=== PATIENT | female | born 1930 | race Caucasian/White ===

== ENCOUNTER 2019-03-16 03:43 | Inpatient (IN) ==
[2019-03-16] MEDS ORDERED: URO-JET MUCOUSMEMB STA (04:00)
--- NOTE | 2019-03-16 05:30 | CT ---
EXAM: CT chest without contrast. HISTORY: Cough and fever. PROCEDURE: Contiguous axial CT images of the chest without contrast with coronal and sagittal reform ats. FINDINGS: There is motion artifact which limits the exam. The heart is enlarged. The thoracic aorta is within normal limits in diameter. There are atherosclerotic calcifications in the thoracic aorta . There are coronary artery calcifications. There is circumferential wall thickening in the esophag us measuring up to 1.1 cm. There is a small hiatal hernia. There are secretions in the bilateral low er lobe bronchi. There are bilateral lower lobe infiltrates and minimal consolidation, consistent wi th pneumonia. There are degenerative changes in the spine. Impression: Bilateral lower lobe infiltrates and consolidation, consistent with pneumonia. Secretions in the bilateral lower lobe bronchi. Cardiomegaly. Atherosclerotic vascular disease. Circumferential wall thickening in the esophagus. The differential diagnosis includes esophagitis an d neoplasm.
--- NOTE | 2019-03-16 05:35 | CT ---
EXAM: CT of the abdomen and pelvis without contrast. HISTORY: Fever. Cough. Vomiting. PROCEDURE: Contiguous axial CT images of the abdomen and pelvis without contrast with coronal and sa gittal reformats. FINDINGS: The liver is normal in appearance. The gallbladder is at the upper limits of normal in siz e measuring 4 cm in diameter. The pancreas, spleen, adrenal glands and kidneys are normal in appeara nce. The abdominal aorta is within normal limits in diameter. There are atherosclerotic calcificati ons in the major arteries of the abdomen and pelvis. There is a small hiatal hernia. The appendix i s not visualized. There is diverticulosis of the colon with no evidence of diverticulitis. There is fecal impaction in the rectum which measures 6.8 x 6 cm on a single axial image. No free fluid or f ree air in the abdomen or pelvis. The bladder is minimally filled and normal in appearance. The [place] shila is surgically absent. There are multiple old healed pelvic fractures. There are degenerative an d operative changes in the spine. Impression: Fecal impaction in the rectum as described. Diverticulosis of the colon with no evidence of diverticulitis. Small hiatal hernia. Atherosclerotic vascular disease. Hysterectomy.
--- NOTE | 2019-03-16 06:06 | ED.PDOC ---
General ED Provider: Dr. KAVITA FITCH-ER Chief Complaint: Shortness of Air Stated Complaint: sent from mt for sob and temp 102 Time Seen by Physician: 03:45 Mode of Arrival: Ambulance Information Source: EMT Exam Limitations: Altered mental status Primary Care Provider: [facility] Nursing and Triage Documentation Reviewed and Agree: Yes Does patient meet sepsis criteria?: Yes If yes, has appropriate treatment been initiated?: Yes System Inflammatory Response Syndrome: Not Applicable Sepsis Protocol: For patient's 13 years and over: Temp is 96.8 and below OR 101 and greater Pulse >90 BPM Resp >20/minute Acutely Altered Mental Status Are patient's symptoms suggestive of a new infection, such as: -Pneumonia -Skin, Soft Tissue -Endocarditis -UTI -Bone, Joint Infection -Implantable Device -Acute Abdominal Infection -Wound Infection -Meningitis -Blood Stream Catheter Infection -Unknown Respiratory Complaint Exam - Respiratory Complaint/Exam Onset/Duration: 24 hrs Symptoms Are: Still present Initial Severity: Mild Current Severity: Moderate Location: Chest Character: Reports: Non-productive cough Aggravating: Reports: URI Alleviating: Reports: None Associated Signs and Symptoms: Reports: Rapid breathing, Dyspnea, Fever, Chills History of Healthcare-Acquired Pneumonia: Lives at half-way Home Oxygen Use: No Recent Stress Test: No Recent Echo/LV Function: No Respiratory Distress: Mild Inadequate Respiratory Effort: No Dysphagia Present: No Stridor Present: No JVD Present: No Accessory Muscle Use: No Diminished Breath Sounds: No Sinus Tenderness: None Grunting Respirations: No Kussmaul Respirations: No Differential Diagnoses: Pneumonia, Bronchitis Non-Traumatic Chest Pain Syncope: EKG Performed Review of Systems - Review Of Systems Constitutional: Reports: Chills, Fever, Weakness Eyes: Reports: No symptoms Ears, Nose, Mouth, Throat: Reports: No symptoms Respiratory: Reports: Cough, Short of air Cardiac: Reports: No symptoms GI: Reports: No symptoms : Reports: No symptoms Musculoskeletal: Reports: No symptoms Skin: Reports: No symptoms Neurological: Reports: No symptoms Endocrine: Reports: No symptoms Hematologic/Lymphatic: Reports: No symptoms All Other Systems: Reviewed and Negative Past Medical History - Past Medical History Previously Healthy: No Endocrine: Reports: Unknown Cardiovascular: Reports: Unknown Respiratory: Reports: Unknown Hematological: Reports: Unknown Gastrointestinal: Reports: Unknown Genitourinary: Reports: Unknown Neuro/Psych: Reports: Unknown Musculoskeletal: Reports: Unknown Cancer: Reports: Unknown Last Menstrual Period: UNKNOWN - Surgical History General Surgical History: Reports: Unknown - Family History Family History: Reports: Unknown - Social History Smoking Status: Unknown if ever smoked Hx Substance Use: (UNKNOWN) Alcohol Screening: None - Immunizations Tetanus Shot up to Date: (UNKNOWN) Physical Exam - Physical Exam Appearance: Well-appearing, No pain distress, Well-nourished Eyes: ALYSHA, EOMI, Conjunctiva clear ENT: Ears normal, Nose normal, Oropharynx normal Neck: Supple Respiratory: Crackles, Rhonchi Cardiovascular: RRR, Pulses normal, No rub, No murmur GI/: Soft, Nontender, No masses, Bowel sounds normal, No Organomegaly Musculoskeletal: Normal strength Skin: Warm Neurological: Sensation intact, Motor intact, Reflexes intact, Cranial nerves intact, Alert, Oriented Psychiatric: Affect appropriate, Mood appropriate Interpretation - Radiology Interpretation Radiology Interpretation By: Radiologist Radiology Results: Positive Exam Interpreted: CT Scan - EKG Interpretation Time of EKG #1: 06:06 Rate: Tachy Rhythm: Sinus Ectopy: None [place]: [place] ST Segment: Normal Critical Care Note - Critical Care Note Total Time (mins): 0 Course - Course Hematology/Chemistry: 03/16/19 04:30 03/16/19 04:30 Orders, Labs, Meds: Lab Review 03/16/19 03/16/19 03/16/19 03:58 04:30 04:30 WBC 9.79 RBC 4.38 Hgb 12.5 Hct 37.8 MCV 86.3 MCH 28.5 MCHC 33.1 RDW Coeff of Len 13.7 Plt Count 135 L Immature Gran % (Auto) 0.5 Neut % (Auto) 83.3 Lymph % (Auto) 10.4 Mellette % (Auto) 5.6 Eos % (Auto) 0.1 Baso % (Auto) 0.1 Immature Gran # (Auto) 0.1 Neut # (Auto) 8.2 H Lymph # (Auto) 1.0 Mellette # (Auto) 0.6 Eos # (Auto) 0.0 Baso # (Auto) 0.0 Puncture Site Lrad O2 Saturation 90.0 L ABG pH 7.398 ABG pCO2 40.9 ABG pO2 58.0 L* ABG HCO3 25.2 ABG Total CO2 26 ABG Base Excess 0 Jose Alberto Test + O2 Delivery Device Simple mask Oxygen Liter Flow 10.00 FiO2 % 60.0 Sodium 136.6 Potassium 3.28 L Chloride 99.7 Carbon Dioxide 26.9 Anion Gap 13.28 BUN 18.5 H Creatinine 0.63 Estimated GFR (MDRD) 89.00 BUN/Creatinine Ratio 29.36 Glucose 220.5 H Lactic Acid Calcium 8.79 Total Bilirubin 0.82 AST 18.6 ALT 14.1 Alkaline Phosphatase 77.7 Total Creatine Kinase Troponin I Total Protein 6.38 Albumin 3.85 Globulin 2.53 Albumin/Globulin Ratio 1.52 Amylase Lipase Procalcitonin Urine Color Urine Clarity Urine pH Ur Specific Axis Urine Protein Urine Glucose (UA) Urine Ketones Urine Blood Urine Nitrite Urine Bilirubin Urine Urobilinogen Ur Leukocyte Esterase Urine Microscopic RBC Urine Microscopic WBC Ur Squamous Epith Cells Urine Bacteria Urine Mucus 03/16/19 03/16/19 03/16/19 04:30 04:30 04:30 WBC RBC Hgb Hct MCV MCH MCHC RDW Coeff of Len Plt Count Immature Gran % (Auto) Neut % (Auto) Lymph % (Auto) Mellette % (Auto) Eos % (Auto) Baso % (Auto) Immature Gran # (Auto) Neut # (Auto) Lymph # (Auto) Mellette # (Auto) Eos # (Auto) Baso # (Auto) Puncture Site O2 Saturation ABG pH ABG pCO2 ABG pO2 ABG HCO3 ABG Total CO2 ABG Base Excess Jose Alberto Test O2 Delivery Device Oxygen Liter Flow FiO2 % Sodium Potassium Chloride Carbon Dioxide Anion Gap BUN Creatinine Estimated GFR (MDRD) BUN/Creatinine Ratio Glucose Lactic Acid 1.46 Calcium Total Bilirubin AST ALT Alkaline Phosphatase Total Creatine Kinase 41.5 Troponin I 0.014 Total Protein Albumin Globulin Albumin/Globulin Ratio Amylase 70.0 Lipase 34.0 Procalcitonin 0.06 Urine Color Urine Clarity Urine pH Ur Specific Axis Urine Protein Urine Glucose (UA) Urine Ketones Urine Blood Urine Nitrite Urine Bilirubin Urine Urobilinogen Ur Leukocyte Esterase Urine Microscopic RBC Urine Microscopic WBC Ur Squamous Epith Cells Urine Bacteria Urine Mucus 03/16/19 06:00 WBC RBC Hgb Hct MCV MCH MCHC RDW Coeff of Len Plt Count Immature Gran % (Auto) Neut % (Auto) Lymph % (Auto) Mellette % (Auto) Eos % (Auto) Baso % (Auto) Immature Gran # (Auto) Neut # (Auto) Lymph # (Auto) Mellette # (Auto) Eos # (Auto) Baso # (Auto) Puncture Site O2 Saturation ABG pH ABG pCO2 ABG pO2 ABG HCO3 ABG Total CO2 ABG Base Excess Jose Alberto Test O2 Delivery Device Oxygen Liter Flow FiO2 % Sodium Potassium Chloride Carbon Dioxide Anion Gap BUN Creatinine Estimated GFR (MDRD) BUN/Creatinine Ratio Glucose Lactic Acid Calcium Total Bilirubin AST ALT Alkaline Phosphatase Total Creatine Kinase Troponin I Total Protein Albumin Globulin Albumin/Globulin Ratio Amylase Lipase Procalcitonin Urine Color Yellow Urine Clarity Cloudy Urine pH 6.5 Ur Specific Axis 1.020 Urine Protein 1+ Urine Glucose (UA) Negative Urine Ketones Trace Urine Blood Trace-lysed Urine Nitrite Positive Urine Bilirubin Negative Urine Urobilinogen 0.2 Ur Leukocyte Esterase 1+ Urine Microscopic RBC 5-10 Urine Microscopic WBC 30-50 Ur Squamous Epith Cells 30-50 Urine Bacteria 4+ Urine Mucus 2+ Orders Category Date Time Status ADMIT PATIENT INPATIENT .TO [facility] (MONITORED BED) ADMISSION 03/16/19 06: 08 Active ABG DRAW REQUEST Stat CARDIO 03/16/19 03:59 Completed EKG-(ED ONLY) Stat CARDIO 03/16/19 03:59 Completed OXYGEN Routine CARDIO 03/16/19 06:09 Ordered ACTIVITY .Complete BR CARE 03/16/19 06:08 Active INTAKE & OUTPUT Q8HR CARE 03/16/19 06:08 Active TELEMETRY MONITORING TELE CARE 03/16/19 06:08 Active VITAL SIGNS Q4HR CARE 03/16/19 06:08 Active VITAL SIGNS Q8HR CARE 03/16/19 06:08 Active NOTHING BY MOUTH DIETARY 03/16/19 Breakfast Ordered Catheter [ED CATHETER INSERTION AND CARE] .ONCE EMERGENCY 03/16/19 04:00 Active ED GLASS BLOWER APPLIED .ONCE EMERGENCY 03/16/19 03:59 Active ED IV/MEDIPORT/POWERPORT .ONCE EMERGENCY 03/16/19 03:59 Active ABG Stat LAB 03/16/19 03:58 Completed AMYLASE Stat LAB 03/16/19 04:30 Completed BLOOD CULTURE (ED ONLY) Stat LAB 03/16/19 04:30 Received CBC W/ AUTO DIFF DAILY@0600 LAB 03/17/19 06:00 Ordered CBC W/ AUTO DIFF DAILY@0600 LAB 03/18/19 06:00 Ordered CBC W/ AUTO DIFF Stat LAB 03/16/19 04:30 Completed COMPREHENSIVE METABOLIC PANEL DAILY@0600 LAB 03/17/19 06:00 Ordered COMPREHENSIVE METABOLIC PANEL DAILY@0600 LAB 03/18/19 06:00 Ordered COMPREHENSIVE METABOLIC PANEL Stat LAB 03/16/19 04:30 Completed CREATINE KINASE Stat LAB 03/16/19 04:30 Completed LACTIC ACID Stat LAB 03/16/19 04:30 Completed LIPASE Stat LAB 03/16/19 04:30 Completed PROCALCITONIN Stat LAB 03/16/19 04:30 Completed TROPONIN I Stat LAB 03/16/19 04:30 Completed URINALYSIS C & S IF INDICATED Stat LAB 03/16/19 06:00 Completed URINE CULTURE Stat LAB 03/16/19 06:00 Received 0.9 % Sodium Chloride [Saline Flush] MEDS 03/16/19 03:58 Ordered 1 syr IVF PRN PRN Aztreonam [Azactam] 1 gm MEDS 03/16/19 13:00 Ordered 0.9 % Sodium Chloride [Sodium Chloride] 50 ml IV Q8HR Bisacodyl [Dulcolax] MEDS 03/16/19 06:13 Ordered 5 mg PO DAILY PRN Enoxaparin Sodium [Lovenox] MEDS 03/16/19 09:00 Ordered 30 mg SUBCUT DAILY Indapamide [Indapamide] MEDS 03/16/19 09:00 Ordered 1.25 mg PO DAILY Lidocaine HCl [Uro-Jet] MEDS 03/16/19 04:00 Discontinued 10 ml MUCOUSMEMB ONCE STA Omeprazole [Omeprazole] MEDS 03/16/19 09:00 Ordered 40 mg PO DAILY Potassium Chloride/D5-0.9%NaCl [D5%-Ns-KCl 20 Meq/l IV MEDS 03/16/19 06:30 Ordered Cayla] 1,000 ml IV 75 mls/hr Sertraline HCl [Zoloft] MEDS 03/16/19 09:00 Ordered 25 mg PO DAILY Vancomycin HCl [Vancomycin] 1 gm MEDS 03/16/19 06:30 Ordered 0.9 % Sodium Chloride [Sodium Chloride] 250 ml IV Q12HR RESUSCITATION STATUS Routine OTHERS 03/16/19 06:[address] ABDOMEN/PELVIS WO CONTRAST Stat RADS 03/16/19 04:[address] CHEST W/O CONTRAST Stat RADS 03/16/19 04:00 Completed Medications Generic Name Dose Route Start Last Admin Trade Name Freq PRN Reason Stop Dose Admin Bisacodyl 5 mg 03/16/19 06:13 Dulcolax PO DAILY PRN Constipation Enoxaparin Sodium 30 mg 03/16/19 09:00 Lovenox SUBCUT DAILY SELVIN Potassium Chloride/Dextrose/Sod Cl 1,000 mls @ 75 mls/hr 03/16/19 06:30 D5%-Ns-Kcl 20 Meq/L Iv Cayla IV .[id number] SELVIN Vancomycin HCl 1 gm/ Sodium 250 mls @ 250 mls/hr 03/16/19 06:30 Chloride IV 03/19/19 06:29 Q12HR SELVIN Aztreonam 1 gm/ Sodium 50 mls @ 75 mls/hr 03/16/19 13:00 Chloride IV 03/19/19 12:59 Q8HR SELVIN Non-Formulary Medication 1.25 mg 03/16/19 09:00 Indapamide [Indapamide] PO DAILY SELVIN Non-Formulary Medication 40 mg 03/16/19 09:00 Omeprazole [Omeprazole] PO DAILY SELVIN Sertraline HCl 25 mg 03/16/19 09:00 Zoloft PO DAILY SELVIN Sodium Chloride 1 syr 03/16/19 03:58 Saline Flush IVF PRN PRN To flush IV Discontinued Medications Generic Name Dose Route Start Last Admin Trade Name Freq PRN Reason Stop Dose Admin Lidocaine HCl 10 ml 03/16/19 04:00 Uro-Jet MUCOUSMEMB 03/16/19 04:01 ONCE STA Vital Signs: Temp Pulse Resp BP Pulse Ox 03/16/19 05:00 99.6 F 90 28 H 103/50 L 94 L 03/16/19 03:44 100 F H 92 H 28 H 131/74 95 her son Kj was advised of her depth of illness and was advised she may not survive the hospitalization and he again noted comfort measures only and did not want cpr--hence dnr Departure - Departure Time of Disposition: 06:06 Disposition: ADMITTED INPATIENT Discharge Problem: Acute respiratory failure Qualifiers: Respiratory failure complication: hypoxia Qualified Code(s): J96.01 - Acute respiratory failure with hypoxia Pneumonia Qualifiers: Pneumonia type: due to unspecified organism Laterality: unspecified laterality Lung location: unspecified part of lung Qualified Code(s): J18.9 - Pneumonia, unspecified organism Instructions: Pneumonitis (ED) Condition: Good Pt referred to PMD for follow-up: Yes IPMP verified?: No Allergies/Adverse Reactions: Allergies bee venom protein (honey bee) Allergy (Unknown, Verified 03/16/19 03:54) Unknown milk Allergy (Unknown, Verified 03/16/19 03:54) Unknown Penicillins Allergy (Unknown, Verified 03/16/19 03:54) Unknown typhoid vaccine Allergy (Unknown, Verified 03/16/19 03:54) Unknown Home Medications: Ambulatory Orders Calcium Carbonate/Vitamin D3 [Calcium 600-Vit D3 400 Tablet] 1 each PO DAILY # 30 tab-cap 12/05/18 Epinephrine [Epipen Twinpak] 0.3 mg IJ DAILY PRN #1 kt 12/05/18 Indapamide 1.25 mg PO DAILY #30 tab-cap 12/05/18 Metformin HCl 500 mg PO DAILY #30 tab-cap 12/05/18 Omeprazole 40 mg PO DAILY #30 tab-cap 12/05/18 Sertraline HCl 25 mg PO DAILY #15 tab-cap 12/05/18 Bisacodyl 5 mg PO DAILY PRN 03/16/19 Transfer Form Completed: No Disposition Discussed With: Other (half-way)
[2019-03-16] MEDS ORDERED: DULCOLAX PO PRN (06:13)
[2019-03-16] MEDS ORDERED: ALBUTEROL 0.042% NEB NEB PRN (06:22)
[2019-03-16] MEDS ORDERED: TYLENOL RC PRN (06:23)
[2019-03-16] MEDS: VANCOMYCIN 1 GM in SODIUM CHLORIDE 250 ML IV SCH ×7 (07:15→20:12)
[2019-03-16] MEDS: INDAPAMIDE 1.25 MG PO SCH (08:18)
[2019-03-16] MEDS: ZOLOFT PO SCH (08:18)
[2019-03-16] MEDS: PRILOSEC PO SCH (08:18)
[2019-03-16] MEDS: D5%-NS-KCL 20 MEQ/L IV SOL 1,000 ML IV SCH (08:55)
[2019-03-16] MEDS: LOVENOX SUBCUT SCH (08:55)
[2019-03-16] MEDS ORDERED: NON-FORMULARY MEDICATION (Omeprazole [Omeprazole] 40 MG) PO SCH (09:00)
[2019-03-16] MEDS: ALBUTEROL 0.042% NEB NEB SCH ×3 (11:10→22:55)
[2019-03-16] MEDS: AZACTAM 1 GM in SODIUM CHLORIDE 50 ML IV SCH ×2 (13:21→20:09)
[2019-03-17] MEDS: D5%-NS-KCL 20 MEQ/L IV SOL 1,000 ML IV SCH ×2 (03:01→20:08)
[2019-03-17] MEDS: ALBUTEROL 0.042% NEB NEB SCH ×4 (04:37→22:30)
[2019-03-17] MEDS: AZACTAM 1 GM in SODIUM CHLORIDE 50 ML IV SCH ×3 (05:23→20:08)
[2019-03-17] MEDS: PRILOSEC PO SCH (05:32)
[2019-03-17] MEDS: INDAPAMIDE 1.25 MG PO SCH (08:15)
[2019-03-17] MEDS: ZOLOFT PO SCH (08:15)
[2019-03-17] MEDS: LOVENOX SUBCUT SCH (09:20)
[2019-03-17] MEDS: VANCOMYCIN 1 GM in SODIUM CHLORIDE 250 ML IV SCH (09:24)
[2019-03-18] MEDS: AZACTAM 1 GM in SODIUM CHLORIDE 50 ML IV SCH ×3 (04:50→20:07)
[2019-03-18] MEDS: ALBUTEROL 0.042% NEB NEB SCH ×4 (04:52→23:45)
[2019-03-18] MEDS ORDERED: VANCOMYCIN 1 GM in SODIUM CHLORIDE 250 ML IV SCH (09:00)
[2019-03-18] MEDS: VANCOMYCIN 750 MG in SODIUM CHLORIDE 250 ML IV SCH ×2 (09:07→21:32)
[2019-03-18] MEDS: LOVENOX SUBCUT SCH (09:07)
[2019-03-18] MEDS: ZOLOFT PO SCH (09:08)
[2019-03-18] MEDS: PRILOSEC PO SCH (09:08)
[2019-03-18] MEDS: INDAPAMIDE 1.25 MG PO SCH (09:08)
--- NOTE | 2019-03-18 14:22 | DI ---
EXAM: Single, portable AP view(s) chest. HISTORY: Pneumonia. COMPARISON: CT of the chest dated 03/16/2019. TECHNIQUE: Single, portable APview(s) of the chest. FINDINGS: Lungs: The lung voulmes are normal. Diffuse interstitial prominence is seen. Increasing bibasilar air space opacities seen, right gr eater left. There are no suspicious nodules. There is no pneumothorax. Cardiovascular: The heart is enlarged. The pulmonary vasculature is within normal limits.. The aorta is calcified. Shannen/Mediastinum: Normal. Osseous structures. Normal for age. IMPRESSION: 1. Increasing bibasilar air space opacities which has appearance of pneumonia. 2. Cardiomegaly.
[2019-03-18] MEDS: VITAMIN B-12 IM SCH (14:51)
[2019-03-18] MEDS: D5%-NS-KCL 20 MEQ/L IV SOL 1,000 ML IV SCH (20:07)
[2019-03-18] MEDS: THIAMINE IM SCH (20:07)
[2019-03-19] MEDS: ALBUTEROL 0.042% NEB NEB SCH ×4 (04:35→23:15)
[2019-03-19] MEDS: AZACTAM 1 GM in SODIUM CHLORIDE 50 ML IV SCH (04:52)
[2019-03-19] MEDS: PRILOSEC PO SCH (05:38)
[2019-03-19] MEDS: D5%-NS-KCL 20 MEQ/L IV SOL 1,000 ML IV SCH ×3 (06:45→14:57)
[2019-03-19] MEDS: VANCOMYCIN 750 MG in SODIUM CHLORIDE 250 ML IV SCH ×2 (08:01→22:35)
[2019-03-19] MEDS: THIAMINE IM SCH (08:02)
[2019-03-19] MEDS: VITAMIN B-12 IM SCH (08:04)
[2019-03-19] MEDS: ZOLOFT PO SCH (08:07)
[2019-03-19] MEDS: INDAPAMIDE 1.25 MG PO SCH (08:08)
[2019-03-19] MEDS: LOVENOX SUBCUT SCH (08:09)
--- NOTE | 2019-03-19 11:16 | DI ---
Exam: Single view of the chest. Comparison: 03/18/2019. Reason for exam: Short of breath. The findings: Patchy airspace opacities in the lung bases with blunting of the right costophrenic angle and cardiom egaly. Impression: Basilar atelectasis/pneumonia with pulmonary vascular congestion and persistent cardiomegaly.
--- NOTE | 2019-03-19 12:38 | PN ---
DATE OF SERVICE: 03/17/19 OBJECTIVE: The patient is in the right lateral decubitus position. She is not dyspneic or tachypneic. No cyanosis. Lungs have rales in both lung longoria but no wheezing. Heart is audible with good tones. Abdomen no tenderness. The patient is being treated for bilateral pneumonia, possibly aspiration. This patient is on NPO and needs orotracheal suction if there is any mucus collection. Vital signs at 2 p.m. 03/17/19 temperature 98, pulse 83, blood pressure 89/47, respiratory rate 20, no oxygen saturation with 3L of nasal oxygen. Apparently in the day about noon, the oxygen saturation is 97 with the same FI02. WBC remained normal. She has moderate anemia and mild thrombocytopenia. Electrolytes are slightly lower, potassium 2.96. Potassium will be added to the regimen. Her blood sugar is down to 134. Urinalysis was abnormal and a repeat urinalysis catheterized, the patient has a Good catheter. Condition slightly better, prognosis unchanged. MTDD
--- NOTE | 2019-03-19 12:45 | PN ---
DATE OF SERVICE: 03/18/19 SUBJECTIVE: The patient is an 88-year-old female who is known to have senile dementia quite severe. The patient had bilateral pneumonitis, probably aspiration. The patient on admission was unresponsive verbally or does not communicate. The patient was seen in the sitting position today and the patient upon calling her name was smiling. She still has rales in both lung longoria. Her color is better and seemed to have a better affect now. The son was here this morning and told the nurse this was the best response he ever had with his mother. He is now willing to consider feeding gastrostomy. I have not discussed that with him. I will have to call him tomorrow and see if he still wants to continue with that idea. The patient will be given B12 1,000 mcg daily including BUN. Will see how she does or how she improves. Potassium is better today 3.17 from 2.96. This patient had a chest CT on admission 03/16/19, two days ago. Ms. Hilliard will be tried on a thickened liquid diet to see if she is able to swallow. Will also have swallow evaluation tomorrow, dysphagia study. [facility]
[2019-03-19] MEDS: MAXIPIME 2 GM in SODIUM CHLORIDE 100 ML IV SCH ×2 (16:01→21:15)
--- NOTE | 2019-03-19 17:00 | CT ---
EXAM: CT of the head without contrast History: Confusion. Technique: Multiplanar CT images through the head were obtained without the administration of IV con trast Findings: Moderate to severe mucosal thickening of the paranasal sinuses with fluid and air fluid le vels. Small right mastoid effusion. Left mastoid air cells are clear. No acute calvarial abnormali ties. Intracranially there is diffuse cerebral atrophy. No midline shift and no hydrocephalus. No acute i ntracranial hemorrhage or abnormal extraaxial fluid collections. Periventricular and subcortical whi te matter hypodensities. 1.2 cm calcified meningioma along the anterior falx. Impression: 1. No acute intracranial process 2. Chronic age-related changes. 3. Moderate to severe sinusitis. 4. Benign calcified meningioma along the anterior falx
[2019-03-20] MEDS: ALBUTEROL 0.042% NEB NEB SCH ×4 (04:45→23:20)
[2019-03-20] MEDS: D5%-NS-KCL 20 MEQ/L IV SOL 1,000 ML IV SCH ×2 (05:09→13:18)
[2019-03-20] MEDS: PRILOSEC PO SCH (06:34)
[2019-03-20] MEDS: INDAPAMIDE 1.25 MG PO SCH (08:27)
[2019-03-20] MEDS: ZOLOFT PO SCH (08:27)
[2019-03-20] MEDS: MAXIPIME 2 GM in SODIUM CHLORIDE 100 ML IV SCH ×2 (08:27→20:12)
[2019-03-20] MEDS: VITAMIN B-12 IM SCH (08:27)
[2019-03-20] MEDS: THIAMINE IM SCH (08:28)
[2019-03-20] MEDS: LOVENOX SUBCUT SCH (08:29)
[2019-03-20] MEDS: VANCOMYCIN 750 MG in SODIUM CHLORIDE 250 ML IV SCH ×2 (10:02→21:29)
[2019-03-20] MEDS ORDERED: LASIX IVP STA (15:12)
[2019-03-21] MEDS: D5%-NS-KCL 20 MEQ/L IV SOL 1,000 ML IV SCH ×2 (01:02→13:34)
[2019-03-21] MEDS: ALBUTEROL 0.042% NEB NEB SCH ×4 (05:05→22:01)
[2019-03-21] MEDS: PRILOSEC PO SCH (05:47)
[2019-03-21] MEDS: INDAPAMIDE 1.25 MG PO SCH (09:04)
[2019-03-21] MEDS: ZOLOFT PO SCH (09:04)
[2019-03-21] MEDS: MAXIPIME 2 GM in SODIUM CHLORIDE 100 ML IV SCH ×2 (09:06→20:56)
[2019-03-21] MEDS: THIAMINE IM SCH (09:08)
[2019-03-21] MEDS: VITAMIN B-12 IM SCH (09:11)
[2019-03-21] MEDS: LOVENOX SUBCUT SCH (09:13)
--- NOTE | 2019-03-21 11:31 | HP ---
DATE OF SERVICE: 03/16/19 CHIEF COMPLAINT: Difficulty breathing HISTORY OF PRESENT ILLNESS: 88 year old patient of Dr. Bruce who presented to the Emergency Department from [facility]. Dispatch was called after the patient had difficulty breathing. The staff had reported that the patient had had fever since approximately 10am. They had attempted to suction the patient's airway because she was trying to "cough up some junk" but the patient had bit down on the [place] tubing and she was unable to finish. Staff also stated that the patient had an O2 saturation of 82% before they placed her on nasal O2 at 2 liters per nasal cannula. Which had brought her oxygen saturation up to 92%. The staff reported that Dr. Bruce had advised the patient to be taken to the Emergency Department to evaluated and treated due to increase in lung congestion and the drop in O2 saturation. Her blood gasses on admission to the Emergency Department; O2 saturation was 90%, pCo2 40.9, pO2 58, HCO3 was at 25.2 and total CO2 26. Oxygen liter flow was 60% oxygen. WBC was normal at 9.79 , hgb and hct were stable. A CT of the chest was completed in the emergency department and did show concerns for bilateral lower lobe infiltrates and consolidation consistent with pneumonia and secretions in the bilateral lower lobe bronchi as well as cardiomegaly and arthrosclerotic vascular disease and circumferential wall thickening in the esophagus with the differential diagnosis includes esophagitis and neoplasm. Temperature through the night was 100 and this morning it was 102. Decision was made to admit the patient for further evaluation and treatment of the pneumonia. The patient was rather lethargic with decreased responsiveness while in the Emergency Department. PAST PERSONAL HISTORY: Dementia Alzheimer's disease History of pneumonia Diverticulosis Hiatal hernia Gastroesophageal reflux disease Osteoarthritis Osteoporosis Depression Anemia Family at the bedside reports that she had previously had lived at [facility] and had sustained a pelvic fracture approximately one year ago and has not been able to ambulate since then. Past surgical history is not able to be obtained and there is no documented past surgical history listed in the chart. FAMILY HISTORY: Not applicable and unknown SOCIAL HISTORY: No reports of smoking, substance abuse or alcohol use. MEDICATIONS: Bisacodyl 5mg tablet 10mg daily as needed Indapamide 1.25mg tablet once daily Calcium Carbonate with Vitamin D3 600mg with Vitamin D3 400mg tablet one daily Sertraline 25mg tablet daily Omeprazole 40mg daily Metformin 500mg daily Epipen as needed for allergic reaction ALLERGIES: Bee venom Protein Honey bee from the honey bee Milk Penicillin Typhoid vaccine REVIEW OF SYSTEMS: per medical recorder review and also review of symptoms obtained from family who at the bedsides which includes the son and son's . CONSTITUTIONAL: She has had fever, unsure about chills. No reports of any weight changes. 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 RESPIRATORY: Had had increase in congestion, lung congestion with drop in O2 saturation. She has had a history of pneumonia in the past CARDIOVASCULAR: No reports of chest pain. Son does report that she does have a history of irregular rhythm. Atrial fibrillation was caught on telemetry monitoring while the patient has been on the floor. The son does report that she does have a history of this. No reports of peripheral edema. GASTROINTESTINAL: Does does have a history of constipation, this is chronic. No reports of vomiting. No reports of blood in stool. GENITOURINARY: She does have a Good Catheter at this time. Unsure if this is a chronic Good Catheter. No reports of Symptoms. MUSCULOSKELETAL: Son reports pelvic fracture approximately one year ago and the patient has no walked since the pelvic fracture. NEUROLOGICAL: No reports of dizziness or neurological deficits. ENDOCRINE: No listed documented of diabetes mellitus of thyroid disease INTEGUMENT: No documentation of any skin changes or any non healing wounds. PSYCHIATRIC: There is a reported list of depression PHYSICAL EXAMINATION: GENERAL: She is more alert this afternoon. She does not talk. She is not able to answer any questions. Again she is alert and the family reports that she has been very lethargic until just in the last 30 minutes. VITAL SIGNS: Temperature 100, pulse 92, blood pressure 131/74, respiratory rate 28, o2 saturation 95%. Height 5'7, weight 143 pounds. HEAD: Normal Cephalic. Atraumatic. EYES: Pupils equal/reactive to light. Small approximately 1.5mm. Conjunctivae pale. Sclerae not icteric. Mucus membranes are dry from the oxygen. Currently the patient is 50% Venti mask. NECK: Supple. No thyromegaly. No masses. No bruit. No tenderness. No rigidity. HEART: S1 and S2. Regular rate and rhythm. There is no peripheral edema. The patient has anterior pulses to lower extremities. No posterior peripheral pulses palpated. Audible and regular with good tones. No murmurs. ABDOMEN: Soft. Bowel sounds are positive. All four quadrants. No tenderness on exam NEUROLOGICAL: The patient is alert. She was very lethargic on admit. She appears to be very weak. Very difficult to asses neurological status at this point in time. SKIN: Warm and dry. There is no overt rash or lesions or wounds noted. LABS/DIAGNOSTIC TESTING: Amylase and lipase are normal. Procalcitonin was 0.06, Troponin 0.014, Total CK was normal at 41.5, LFT normal. Urinalysis showed 4+ bacteria and 2+ mucus, Trace hemolyzed blood and positive nitrates. Will followup with cultures on that. CT of the chest was concerning for bilateral lower lobe infiltrates and consolidation consistent with pneumonia and secretions in the bilateral lower lobe bronchi. Also showed cardiomegaly and arthrosclerotic vascular disease and circumferential wall thickening in the esophagus. The differential diagnosis include esophagitis and neoplasm. The CT of the abdomen and pelvis showed fecal impaction, diverticulosis of the colon with no evidence of diverticulitis, small hiatal hernia, arthrosclerotic vascular disease and a hysterectomy. ASSESSMENT: 1. Acute respiratory failure with bilateral lobe infiltrates and consolidation consistent with bilateral pneumonia 2. Hypoxia 3. Fever 4. Intermittent atrial fibrillation per telemetry monitoring 5. History of Alzheimer's dementia 6. History of Pelvic fractures and currently with gait disturbance PLAN: 1. Follow the blood cultures that have already been initiated 2. Urine cultures have also been initiated 3. Labs have already been started 4. The patient is currently on nebulizer treatment as well as IV fluids and Azactam 5. Vancomycin as also been initiated 6. Telemetry monitoring 7. Speech therapy consult is initiated as well 8. Dr. Bruce and myself both also spoken with the son and the son's about the patient's status. Currently the patient is more alert and more responsive than earlier in the Emergency Department. 9. Currently the patient is NPO status. 10. We will continue to follow this patient closely. 11. Further orders and recommendations per Dr. Bruce. TIME SPENT: GREATER THAN 65 MINUTES MTDD
--- NOTE | 2019-03-21 14:44 | PN ---
DATE OF SERVICE: 03/19/19 SUBJECTIVE: The patient is resting in her bed. This morning she is much more alert today. Her urine culture grew out e-coli. Blood cultures are negative after three days. No labs were done today however on March 18, 2019 her hgb was 10.3, hct 32.2, plt count 122. As far as chemistry panel yesterday her potassium is 3.17, BUN 15, creatinine 0.62 and her GFR was 91. A dysphagia study has been ordered for her. According to Case Management the dysphagia study is not able to be done today. The speech therapist is not able to do this until . The Case Management is still in discussion with this with speech therapy as the patient really needs to have this done as soon as possible. Today her vital signs are stable; Temperature 98, pulse 77, blood pressure 104/60, oxygen saturation 92% on 3 liters per nasal canula. On Telemetry she is running sinus rhythm with a heart rate of 63 beats per minute. She has a bundle branch block. On exam the patient still has some rales bilaterally. Heart is regular rate and rhythm. We will continue to follow along with this patient closely. Further orders and recommendation per Dr. Bruce. [facility]
[2019-03-21] MEDS: K-DUR PO SCH (16:29)
[2019-03-22] MEDS: ALBUTEROL 0.042% NEB NEB SCH ×3 (04:20→17:01)
[2019-03-22] MEDS: K-DUR PO SCH ×2 (08:59→16:55)
[2019-03-22] MEDS: THIAMINE IM SCH (09:00)
[2019-03-22] MEDS: VITAMIN B-12 IM SCH (09:00)
[2019-03-22] MEDS: ZOLOFT PO SCH (09:00)
[2019-03-22] MEDS: LOVENOX SUBCUT SCH (09:01)
[2019-03-22] MEDS: INDAPAMIDE 1.25 MG PO SCH (09:11)
[2019-03-22] MEDS: MAXIPIME 2 GM in SODIUM CHLORIDE 100 ML IV SCH (09:11)
--- NOTE | 2019-03-22 10:32 | PN ---
DATE OF SERVICE: 03/20/19 SUBJECTIVE: Today she is resting quietly in her bed. She is in no acute distress. She is wearing 02 at 3L/NC. Temperature 98.3, pulse 73, blood pressure 126/69, 02 sat 98% on 3L/NC. On Telemetry she is in sinus rhythm with bundle branch block 65 bpm. Her hemoglobin on 03/18 was 10.3, her potassium 3.17. We will do repeat labs today - CBC, CMP and will also had an NT-Pro-BNP. Chest x-ray on 03/19 showed basilar pneumonia with pulmonary vascular congestion and persistent cardiomegaly. Today on exam her lungs were coarse. Her heart was regular rate and rhythm. She has minimal lower extremity edema and will continue to follow along with her. She has not had her dysphagia study as yet. She is currently tolerating a honey- thick full liquid diet. Further orders and recommendations per Dr. Bruce. [facility]
--- NOTE | 2019-03-22 10:44 | PN ---
DATE OF SERVICE: 03/21/19 SUBJECTIVE: Yesterday blood work revealed a hemoglobin of 9.9, hematocrit of 30.5, chemistry pane revealed potassium 3.42, BUN 8.2, creatinine 0.63. GFR 89. Her NT -Pro-BNP was 4350. Due to the elevation in her BNP, her abnormal chest x-ray was done on 03/19/19. This showed basillar atelectasis pneumonia with pulmonary vascular congestion. Orders were given for one time dose of Lasix intravenous and her fluids were decreased by half. The patient continues on IV antibiotics. Today her white count is normal. Hemoglobin 10.2, hematocrit 21.2. Her potassium down to 2.94, potassium replacement has been ordered for KCL 20 mEq p.o. twice a day scheduled. Today, her lungs are still congested. She does have a congested cough. Her NT- Pro-BNP is 4480. Heart has regular rate and rhythm. There is minimal lower extremity edema. Plan for confirmation dysphagia study on Tuesday as her beside dysphagia study was negative. I did speak with case management and she reports that she did speak with Ronel Crespo which is the speech therapist and she states "I won' t commit". This information regarding the confirmation speech testing will be passed along to Dr. Bruce. On telemetry she is in sinus rhythm, bundle branch block at 79. She is down 4 lbs from yesterday. Temperature 98, pulse rate 72, blood pressure 101/59. Respiratory rate 20, 02 sat 96% on 2L/NC. She is in no acute distress and she is alert today. JODI
[2019-03-22] MEDS: D5%-NS-KCL 20 MEQ/L IV SOL 1,000 ML IV SCH (14:57)
[2019-03-22] MEDS: MAXIPIME 2 GM/50 ML D5W 2 GM in PREMIX 50 ML D5W 1 BAG IV SCH (21:00)
[2019-03-23] MEDS: ALBUTEROL 0.042% NEB NEB SCH ×5 (00:15→23:30)
[2019-03-23] MEDS: INDAPAMIDE 1.25 MG PO SCH (08:30)
[2019-03-23] MEDS: ZOLOFT PO SCH (08:30)
[2019-03-23] MEDS: K-DUR PO SCH ×2 (08:31→16:59)
[2019-03-23] MEDS: MAXIPIME 2 GM/50 ML D5W 2 GM in PREMIX 50 ML D5W 1 BAG IV SCH ×2 (08:34→21:09)
[2019-03-23] MEDS: VITAMIN B-12 IM SCH (08:37)
[2019-03-23] MEDS: THIAMINE IM SCH (08:38)
[2019-03-23] MEDS: LOVENOX SUBCUT SCH (08:39)
[2019-03-23] MEDS: D5%-NS-KCL 20 MEQ/L IV SOL 1,000 ML IV SCH (13:24)
--- NOTE | 2019-03-23 15:01 | DI ---
Exam: Single view of the chest. Comparison: 03/19/2019. Reason for exam: Cough and pneumonia. FINDINGS: Patchy airspace opacities are seen bilaterally with a perihilar distribution. The cardiac silhouette remains prominent in size. No obvious pneumothorax. Impression: Basilar atelectasis/pneumonia with cardiomegaly and pulmonary vascular congestion. Findings appear s lightly worsened when compared to previous imaging.
[2019-03-23] MEDS ORDERED: LASIX IVP STA (15:07)
[2019-03-24] MEDS: ALBUTEROL 0.042% NEB NEB SCH ×4 (04:25→23:15)
[2019-03-24] MEDS: MAXIPIME 2 GM/50 ML D5W 2 GM in PREMIX 50 ML D5W 1 BAG IV SCH ×2 (08:34→20:24)
[2019-03-24] MEDS: THIAMINE IM SCH (08:35)
[2019-03-24] MEDS: VITAMIN B-12 IM SCH (08:35)
[2019-03-24] MEDS: ZOLOFT PO SCH (08:36)
[2019-03-24] MEDS: LOVENOX SUBCUT SCH (08:37)
[2019-03-24] MEDS: K-DUR PO SCH ×2 (08:37→17:19)
[2019-03-24] MEDS: DULCOLAX PO PRN (08:52)
[2019-03-24] MEDS: INDAPAMIDE 1.25 MG PO SCH (08:58)
[2019-03-24] MEDS ORDERED: LASIX IVP STA (15:36)
[2019-03-25] MEDS: ALBUTEROL 0.042% NEB NEB SCH ×3 (04:15→16:48)
[2019-03-25] MEDS: VITAMIN B-12 IM SCH (08:59)
[2019-03-25] MEDS: DULCOLAX PO PRN (09:00)
[2019-03-25] MEDS: THIAMINE IM SCH (09:00)
[2019-03-25] MEDS: ZOLOFT PO SCH (09:01)
[2019-03-25] MEDS: K-DUR PO SCH (09:01)
[2019-03-25] MEDS: MAXIPIME 2 GM/50 ML D5W 2 GM in PREMIX 50 ML D5W 1 BAG IV SCH (09:02)
[2019-03-25] MEDS: LOVENOX SUBCUT SCH (09:02)
--- NOTE | 2019-03-25 10:08 | DI ---
EXAM: Single view of the chest. History: Follow-up congestive heart failure. Comparison: Chest radiograph 03/23/2019 Findings: Heart remains enlarged. The interstitial pulmonary edema is improving. No pneumothorax. Atherosclerotic vascular calcifications. No acute osseous abnormalities. Impression: Improving pulmonary edema
[2019-03-25] MEDS: INDAPAMIDE 1.25 MG PO SCH (13:34)
[2019-03-25 13:52] VITALS: BP 115/60; TEMP 97.6
--- NOTE | 2019-04-02 12:52 | DS ---
DATE OF SERVICE: 03/25/19 PATIENT IDENTIFICATION: 88 year old female a resident of [facility] developed a cough and fever and shortness of breath with a markedly decreased oxygen saturation at room air to 82%. Her fever was low grade but did spike on the morning of admission to 102 prompting the patient to the emergency room evaluation because of the fever and significant shortness of breath. The patient did have rales on both lung longoria. ABDOMEN: nontender HEART: Normal sinus rhythm CT chest showed bilateral pneumonitis. CBC is unremarkable except for slightly increased neutrophils present. Atrial blood gasses in the emergency room at 60% FiO2 liters of oxygen by mask, oxygen saturation 90, pH 7.398, pCO2 40.9, pO2 58 , HCO3 25, total CO2 26, bases excess is 0. Potassium slightly lower at 3.28 otherwise the rest of the electrolytes are unremarkable. Blood sugar 220.5mg percent. Lactic acid 1.46, procalcitonin 0.06. Urinalysis in the emergency room specific gravity 1.020, Nitrate positive, leukocyte esterase 1+, RBC 5-10, WBC 30-50, squamous epithelium cells 30-50. Urine bacteria 4+ was questionable and the culture did grow e-coli and resistant to penicillin, Cipro, Levofloxacin, Gentamicin and Bactrim. The e-coli is ESBL negative. This patient has severe dementia and does not follow verbal commands however the patient had been eating and is being fed by staff every time. There was no report of any coughing during the course of the feeding or choking. The patient was given on admission beginning at the emergency room Aztreonam 1 gram every 8 hours and Vancomycin 1 gram Q 12 hours. Blood culture was negative for any growth. The patient received intervenous fluids beginning on 03/16/19,Dextrose 5% and normal saline at 75cc an hour. The patient was continued on her previous medications. She was given Lovenox 30mg SUBCUT daily since admission. The patient's temperature in the hospital during admission did spike to 102 twice during the first day. The patient since then has normal temperature beginning on late 03/17/19. The temperatures were axillary most of the time since the patient did bite the thermometer if done orally. The patient's since 03/23/19 had a temperature taken orally. The patient's medications were changed to Cefepime 2 grams ever 12 hours beginning 03/19/19. This patient also was given Lasix intervenously 20mg beginning 03/20 and repeated on 03/23 and 03/24. The patient also was given K-dur 20meq twice a day since the Potassium had decreased below normal. The patient was initiated on B12 injections 1,000mcg daily since 03/18/19 as well as B1 100mg IM daily since 03/18/19. General appearance of the patient has improved remarkably. The patient now smiles but still nonverbal. She does try to make a sound. The patient the day before discharge did attempt to communicate and she was able to talk however it did not make since. The patient's chest x-ray done 03/25/19 showed improving pulmonary congestion. The patient is alert and nonverbal and not oriented times four. She is not dyspneic nor tachypneic and her color is good. The oxygen saturation is 95% at 2 liters. The oxygen saturation obtained before that was 90 and the nasal prongs were not in the nostril. The patient essentially is having room air determination of the nasal oxygen saturation at room air. VITAL SIGNS: Temperature 97.6 orally, pulse 90, blood pressure 115/60, respiratory rate 18, oxygen saturation again was placed at 90 and remeasured since the prongs were not the nostril and was 95%. LUNGS: Fine rales but again hard determined since the patient doesn't follow verbal commands. I had to listen for a length of time in order assess the lungs. HEART: Normal sinus rhythm and regular. The patient however would not the telemetry and so she did not have any telemetry in the afternoon. ABDOMEN: Soft and nontender. Bowel sounds were active LOWER EXTREMITIES: No edema. Pedal pulses were present but they are diminished in volume. There is no redness or any pressure ulcerations on both feet. Chest x-ray done today did not indicated any infiltrate. It does mention that the pulmonary congestion have improved from the previous. This patient will have a nasal oxygen at the longterm and will be fed with a thickened liquid was advised by the speech of therapist who did the bedside evaluation. The speech therapist who did the bedside evaluation felt that the dysphagia study with radiology would probably not be a good study since the patient does not follow verbal commands. I tried to call Kj Reese and I did not have an answer, this was a recording from his business. I called Ines Hilliard and left a message, that is another number. I did leave my cellphone number for them to call me back. The repeat arterial blood gasses FiO2 21%, room air showed oxygen saturation 91%, pH 7.443, pCo2 35, oxygen is 59%, Co2 24.5, total CO2 25, base excess 0. Marked improvement from the admission arterial blood gasses. The patient's NT PRO BNP did rise to 4,480 and on discharge it is down 985. The Procalcitonin on discharge is normal 0.05. Cardiac enzymes were normal on the day of admission FINAL DIAGNOSES: 1. Bilateral lower lobe pneumonitis, resolving 2. Acute respiratory failure secondary to #1 improved 3. Senile dementia, severe 4. No obvious aspiration but beside dysphagia 5. Moderate anemia 6. History of moderate reaction to bee sting bite 7. Diabetes Mellitus type 2 8. Congestive heart failure, improved 9. History of GERD 10.History of osteoporosis The patient's general appearance has improve but the prognosis hasn't changed. PLAN: 1. The patient is to resume previous medications; Metformin, Omeprazole, Sertraline 25mg daily, Calcium plus Vitamin D, Indapamide 1.25mg daily, Bisacodyl 10mg a day as needed, Vitamin B12 1,000mcg IM every other day for one month, Thiamine 100mg IM every other day for one month. 2. This patient should have a CBC and CMP, Pro BNP in one week. TIME SPENT: GREATER THAN 30 MINUTES MTDD
--- NOTE | 2019-04-18 13:57 | PN ---
DATE OF SERVICE: 03/23/19 SUBJECTIVE: Today Mrs. Hilliard is up to her bedside chair. Her vital signs today are stable. She has been afebrile. Temperature 97.5, pulse 66, blood pressure 112/66, respiratory rate 18, O2 saturation 95% on two liters per nasal cannula. She remains on Cefepime IV. Today we will order a chest x-ray. I did speak to the nursing staff and that they are not able to do a two view. They are going to do a one view chest x-ray on Mrs. Hilliard today. Pending the results of that chest x- ray we maybe able to transfer the patient back to the Long Term today. If her chest x-ray is negative or significantly improving we maybe able to discharge her back to the Long Term today. She is clinically appearing to be better. She definitely more alert and she does appear to feel better. On telemetry she runs normal sinus rhythm with a bundle branch block. JODI
--- NOTE | 2019-04-18 14:44 | PN ---
DATE OF SERVICE: 03/24/19 SUBJECTIVE: The patient is alert but not verbal. Her color is good and she is not dyspneic or tachypneic. Her arterial blood gasses were much better than admission. FiO2 21 and the oxygen saturation is 21, pH 7.443 and pCO2 35.4, pO2 is now 59., HCO3 24, total CO2 is 29, base excess is 0. It is much much improved from the time that she was admitted to the hospital from the emergency room. This patient also is now eating. Her food intake yesterday 03/23/19 50% breakfast, 25 % lunch and 25% supper and 75% snack. The patient is fed all the time. The patient never had any choking sensation or cough during the feeding. Today the patient weighed 141 pounds and she was 142 yesterday. This patient was given Lasix yesterday 20mg intervenously because of pulmonary congestion by chest x- ray. This patient will be given another Lasix today and we will have a CBC and CMP and NT PRO BNP tomorrow plus a chest x-ray. I could not see the report from the bedside swallow study. VITAL SIGNS: Temperature 98.7, pulse 69, blood pressure 104/78, respiratory rate 14, oxygen saturation 95 at 2 liters of oxygen. This patient again will have another chest x-ray as well as labs tomorrow. NT PRO BNP is lower today 1,780 from 2,170. It was as high as 4,400 +. Procalcitonin previously was normal and will obtain another one tomorrow. LUNGS: Still has rales at the bases. No wheezing HEART: Audible with good tones. The patient has movement of both upper and lower extremities. She does try to smile. Speech therapist recommended and progressed the diet to pureed thick honey nectar. MTDD
--- NOTE | 2019-07-19 11:09 | PN ---
DATE OF SERVICE: 03/25/19 SUBJECTIVE: Currently Ms. Hilliard is in the hospital for bilateral lower lobe pneumonitits and that is resolving. Plans are to discharge back to the sn[facility] today to [facility]. Please refer to the discharge summary. VITALS: Temperature 97.6, pulse 90, blood pressure 115/60, respiratory rate 18, O2 saturation 95% a recheck. LUNGS: She does have some fine rales HEART: Normal sinus rhythm and regular ABDOMEN: Soft and nontender. Bowel sounds are active LOWER EXTREMITIES: No edema. Pedal pulses were present but they were diminished in volume. There was no redness or any pressure ulcerations on the bilateral feet. MTDD
== END 2019-03-25 18:30 | DRG 189 ==
LOC: ED 03:43 → MEDSURG B 06:19
PROVIDERS: ADMIT General Practice; ATTEND General Practice
DX: G30.9 Alzheimer's disease, unspecified; F02.80 Dementia in other diseases classified elsewhere, unspecified severity, without behavioral disturbance, psychotic disturbance, mood disturbance, and anxiety; J06.9 Acute upper respiratory infection, unspecified; M81.0 Age-related osteoporosis without current pathological fracture; E11.9 Type 2 diabetes mellitus without complications; K21.9 Gastro-esophageal reflux disease without esophagitis; J18.9 Pneumonia, unspecified organism; D64.9 Anemia, unspecified; R05 Cough; I50.9 Heart failure, unspecified; J96.01 Acute respiratory failure with hypoxia; I48.91 Unspecified atrial fibrillation; R53.1 Weakness; R06.00 Dyspnea, unspecified; R50.9 Fever, unspecified

== ENCOUNTER 2019-04-26 13:11 | Outpatient (CLI) | END 2019-04-26 13:12 | disposition home or self-care (01) | LOC: NONPT 13:11 | PROVIDERS: ATTEND General Practice | DX: R79.9 Abnormal finding of blood chemistry, unspecified (principal); R06.02 Shortness of breath | CPT/HCPCS: 80053; 83880; 85025 ==

== ENCOUNTER 2019-05-09 11:57 | Outpatient (CLI) | END 2019-05-09 11:58 | disposition home or self-care (01) | LOC: NONPT 11:57 | PROVIDERS: ATTEND General Practice | DX: R79.9 Abnormal finding of blood chemistry, unspecified (principal) | CPT/HCPCS: 80048 ==